=== PATIENT | male | born 1980 | race Caucasian/White ===

== ENCOUNTER 2024-06-12 18:29 | Emergency (ER) | payer BC, OTHER ==
--- NOTE | 2024-07-11 11:52 | XR ---
Patient: Joseph Haley M III Ordering Physician: Unknown, Unknown ID: [id number] Phone, Pager: Ailyn ne: N/A Pager: N/A : 1980 Age/Gender: 43Y, M Primary Location: N/A Procedure: XR abdomen 1V S tudy Date: 06/12/2024 8:09:00 PM EXAMINATION TYPE: XR abdomen 1V DATE OF EXAM: 06/25/2024 12:12 PM CLINICAL INDICATION: Left lower quadrant pain COMPARISON: None. TECHNIQUE: One radiographic view of the abdomen was obtained. FINDINGS: The bowel gas pattern is nonspecific without dilated loops of small or large bowel. . Fecal material and gas are demonstrated throughout the colon and rectum. There is no evidence for organomegaly or pneumoperitoneum. The osseous structures are intact. No ab normal calcifications are present. IMPRESSION: 1. No calculi visualized. 2. Nonspecific bowel gas pattern without radiographic evidence for acute process.
--- NOTE | 2024-07-17 09:15 | CT ---
EXAM: CT Abdomen and Pelvis With Intravenous Contrast CLINICAL HISTORY: abdominal pain TECHNIQUE: Axial computed tomography images of the abdomen and pelvis with intravenous contrast. CTDI is 13.7 mGy and DLP is 642.1 mGy-cm. This CT exam was performed using one or more of the following dose reduction techniques: automated exposure control, adjustment of the mA and/or kV according to patient size, and/or use of iterative reconstruction technique. COMPARISON: No relevant prior studies available. FINDINGS: Lung bases:Unremarkable. No mass. No consolidation. ABDOMEN: Liver:Unremarkable. No mass. Gallbladder and bile ducts:Unremarkable. No calcified stones. No ductal dilation. Pancreas:Unremarkable. No mass. No ductal dilation. Spleen:Unremarkable. No splenomegaly. Adrenals:Unremarkable. No mass. Kidneys and ureters: LEFT upper pole renal cyst measures 1.8 cm. No hydronephrosis. Stomach and bowel: Wall thickening of small bowel, concerning for enteritis. No obstruction. PELVIS: Appendix:No findings to suggest acute appendicitis. Bladder:Unremarkable. No mass. Reproductive:Unremarkable as visualized. ABDOMEN and PELVIS: Intraperitoneal space:Unremarkable. No free air. No significant fluid collection. Bones/joints:No acute fracture. No dislocation. Soft tissues:Unremarkable. Vasculature:Unremarkable. No abdominal aortic aneurysm. Lymph nodes:Unremarkable. No enlarged lymph nodes. IMPRESSION: Wall thickening of small bowel, concerning for enteritis. Radiologist: Ted Carlisle MD Electronically Signed: 06/13/24 01:22 Study ready at 22:44 and initial results transmitted at 01:22 [facility]
== END 2024-06-13 01:50 | disposition home or self-care (01) ==
LOC: EC 18:29
DX: K52.9 Noninfective gastroenteritis and colitis, unspecified (principal)
CPT/HCPCS: 74018; 74177; 99284

== ENCOUNTER 2025-04-30 12:33 | Emergency (ER) | payer BC, OTHER ==
[2025-04-30 12:41] VITALS: RESP 18
--- NOTE | 2025-04-30 13:25 | ED ---
General Adult HPI - General Chief complaint: Skin/Abscess/Foreign Body Stated complaint: L Foot/Stepped on Nail Time Seen by Provider: 04/30/25 13:00 Source: patient Mode of arrival: ambulatory Limitations: no limitations - History of Present Illness Initial comments: Dictation was produced using [employer] dictation software. please excuse any grammatical, word or spelling errors. Chief Complaint: 44-year-old male with left foot pain after stepping on a nail yesterday History of Present Illness: Patient is a 44-year-old male presents to the emergency department after stepping on a nail yesterday. Complains of pain to the left forefoot. Denies any updated tetanus. Denies any fever, chills or night sweats. States he was wearing a shoe. Not sure if the nail was chris. The ROS documented in this emergency department record has been reviewed and confirmed by me. Those systems with pertinent positive or negative responses have been documented in the HPI. All other systems are other negative and/or noncontributory. - Related Data Previous Rx's Medication Instructions Recorded Ciprofloxacin HCl [Cipro] 500 mg PO BID 5 Days #10 tab 04/30/25 Allergies Allergy/AdvReac Type Severity Reaction Status Date / Time No Known Allergies Allergy Verified 04/30/25 12:41 Review of Systems ROS Statement: Those systems with pertinent positive or pertinent negative responses have been documented in the HPI. ROS Other: All systems not noted in ROS Statement are negative. Past Medical History Past Medical History: No Reported History Past Surgical History: Joint Replacement Past Psychological History: No Psychological Hx Reported Smoking Status: Current every day smoker Past Alcohol Use History: None Reported Past Drug Use History: Marijuana General Exam - General Exam Comments Initial Comments: General: Well-appearing, nontoxic, no acute distress. Head: Normocephalic, atraumatic Eyes: PERRLA, EOMI ENT: Airway patent Chest: Nonlabored breathing Skin: No visual rash, normal skin tone Neuro: Alert and oriented 3 Musculoskeletal: No gross abnormalities Left foot: No gross abnormalities Limitations: no limitations Course Vital Signs 04/30/25 12:39 Temperature 97.6 F Pulse Rate 78 Respiratory 18 Rate Blood Pressure 102/66 O2 Sat by Pulse 98 Oximetry Medical Decision Making - Medical Decision Making Was pt. sent in by a medical professional or institution (, PA, RIGHT OF WAY APPRAISER, urgent care, hospital, or long-term...) When possible be specific @ -No Did you speak to anyone other than the patient for history (EMS, parent, family, police, friend...)? What history was obtained from this source @ -No Did you review nursing and triage notes (agree or disagree)? Why? @ -I reviewed and agree with nursing and triage notes Were old charts reviewed (outside hosp., previous admission, EMS record, old EKG, old radiological studies, urgent care reports/EKG's, long-term records)? Report findings @ -No old charts were reviewed Differential Diagnosis (chest pain, altered mental status, abdominal pain women, abdominal pain men, vaginal bleeding, musculoskeletal, weakness, fever, dyspnea, syncope, headache, dizziness, GI bleed, back pain, seizure, CVA, palpatations, mental health)? @ -Foot puncture, cellulitis, foot fracture EKG interpreted by me (3pts min.). @ -None done X-rays interpreted by me (1pt min.). @ -Left foot x-ray shows no acute processes CT interpreted by me (1pt min.). @ -None done U/S interpreted by me (1pt. min.). @ -None done What testing was considered but not performed or refused? (CT, X-rays, U/S, labs)? Why? @ -None What meds were considered but not given or refused? Why? @ -None Was smoking cessation discussed for >3mins.? @ -No Were there social determinants of health that impacted care today? How? (Homelessness, low income, unemployed, alcoholism, drug addiction, transportation, low edu. Level, literacy, decrease access to med. care, snf, rehab)? @ -No Was there de-escalation of care discussed even if they declined (Discuss DNR or withdrawal of care, Hospice)? DNR status @ -No What co-morbidities impacted this encounter? (DM, HTN, Smoking, COPD, CAD, Cancer, CVA, ARF, Chemo, Hep., AIDS, mental health diagnosis, sleep apnea, mo rbid obesity)? @ -None Was patient admitted / discharged? Hospital course, mention meds given and route, prescriptions, significant lab abnormalities, going to OR and other pertinent info. @ -44-year-old male presents with puncture wound to the left foot. X-rays unremarkable. Patient given antibiotics tetanus is updated. Patient discharged Did you discuss the management of the patient with other professionals (professionals i.e. , PA, RIGHT OF WAY [employer]ER, lab, RT, psych nurse, social services counselor, field mechanic, teacher, compliance officer, case resolution specialist)? Give summary @ -No Was critical care preformed (if so, how long)? @ -No Undiagnosed new problem with uncertain prognosis? @ -No Drug Therapy requiring intensive monitoring for toxicity (Heparin, Nitro, Insulin, Cardizem)? @ -No Were any procedures done? @ -No Diagnosis/symptom? Acute, or Chronic, or Acute on Chronic? Uncomplicated (without systemic symptoms) or Complicated (systemic symptoms)? @ -Foot puncture wound Side effects of treatment? @ -No Exacerbation, Progression, or Severe Exacerbation? @ -No Poses a threat to life or bodily function? How? (Chest pain, [place], [place], pneumonia, PE, COPD, DKA, ARF, appy, cholecystitis, CVA, Diverticulitis, Homicidal, Suicidal, threat to staff... and all critical care pts) @ -yes Disposition Clinical Impression: Penetrating foot wound Disposition: HOME SELF-CARE Condition: Fair Instructions (If sedation given, give patient instructions): Puncture Wound (ED) Prescriptions: Ciprofloxacin HCl [Cipro] 500 mg PO BID 5 Days #10 tab Is patient prescribed a controlled substance at d/c from ED?: No Referrals: None,Stated [Primary Care Provider] - 1-2 days Time of Disposition: 14:06
--- NOTE | 2025-04-30 13:40 | XR ---
EXAMINATION TYPE: XR foot complete LT DATE OF EXAM: 04/30/2025 1:36 PM COMPARISON: None CLINICAL INDICATION: Male, 44 years old with history of stepped on nail yesterday; PHH, pain TECHNIQUE: XR foot complete LT examined in the AP, oblique, and lateral projections. FINDINGS: No evidence of any acute osseous pathology. Soft tissue swelling throughout the foot. No radiopaque f oreign bodies. Incidental note is made of symphalangism of the fifth distal interphalangeal joint. Bi partite medial and lateral sesamoids of the first digit. IMPRESSION: 1. Soft tissue swelling without radiopaque foreign body. 2. No evidence of acute fracture. 3. Multifocal degeneration changes throughout the joints of the foot. [facility], , 04/30/2025 1:37 PM
[2025-04-30] MEDS: DIPH,PERTUS(ACELL)TETVAC-LF 0.5 ML VIAL IM ONE (13:43)
[2025-04-30 14:12] VITALS: BP 111/67; PULSE 72; TEMP 98
== END 2025-04-30 14:10 | disposition home or self-care (01) ==
LOC: EDBD → EC 12:33
DX: S91.332A Puncture wound without foreign body, left foot, initial encounter (principal); F17.200 Nicotine dependence, unspecified, uncomplicated; Z23 Encounter for immunization; W45.0XXA Nail entering through skin, initial encounter
CPT/HCPCS: 90471; 90715; 99283